=== PATIENT | male | born 1995 | race Hispanic/Latino ===

== ENCOUNTER 2017-12-10 13:10 | Emergency (ER) | payer OTHER ==
[~2017-12-10] VITALS: Ht 170.2 cm; Wt 102.7 kg
[~2017-12-10 13:10] MED LIST: MOTRIN800 MG PO; NOHOMEMEDS; SILVADENE20 GM TP
[2017-12-10 14:05] LABS: HEMATOCRIT 45.4 % (38.0-50.0); HEMOGLOBIN 15.5 G/DL (12.5-16.6); MCH 29.5 PG (29.0-34.0); MCHC 34.1 G/DL (30.0-36.0); MCV 86.5 FL (86-99); PLATELET COUNT 206 K/uL (156-360); RBC DIS.WIDTH-CV 15.1 % (11.8-14.6); RBC DIS.WIDTH-SD 47.4 % (39-53); RED BLOOD COUNT 5.25 M/uL (4.00-5.50); WHITE BLOOD COUNT 6.3 K/uL (4.1-10.2)
[2017-12-10 14:11] LABS: D-DIMER ELISA < 150.00 ng/mLDDU (<230)
[2017-12-10 14:16] LABS: CHLORIDE 109 mEq/L (99-109); POTASSIUM 4.5 mEq/L (3.7-5.4); SODIUM 141 mEq/L (136-147)
[2017-12-10 14:17] LABS: GLUCOSE 89 mg/dL (70-99)
[2017-12-10 14:21] LABS: CREATININE 0.9 mg/dL (0.6-1.3); GFR ESTIMATE (CALCULATED) > 59 mL/min/ (58.99-99999)
[2017-12-10 14:22] LABS: UREA NITROGEN (BUN) 19 mg/dL (9-23)
[2017-12-10] MEDS ORDERED: FLEXERIL10 MG PO (16:46)
[2017-12-10 16:59] VITALS: BP 137/65
== END 2017-12-10 17:00 | disposition home or self-care (01) ==
LOC: EME 13:10
PROVIDERS: Nurse Practitioner Family
DX: M54.9 Dorsalgia, unspecified (principal); M62.830 Muscle spasm of back; R06.02 Shortness of breath; J45.909 Unspecified asthma, uncomplicated; F17.200 Nicotine dependence, unspecified, uncomplicated
CPT/HCPCS: 71046; 80048; 85027; 85379; 93005; 99281; 99284